=== PATIENT | male | born 1955 | race Caucasian/White ===

== ENCOUNTER → 2019-02-19 | Outpatient (CLI) | payer BC, OTHER | LOC: EMCIMAGING 13:39 | PROVIDERS: ATTEND Family Medicine | DX: M95.4 Acquired deformity of chest and rib (principal) | CPT/HCPCS: 71046-PN ==

== ENCOUNTER → 2019-02-22 | Outpatient (CLI) | payer OTHER | LOC: EMCIMAGING 15:13 | PROVIDERS: ATTEND Family Medicine | DX: R05 Cough (principal); K76.0 Fatty (change of) liver, not elsewhere classified | CPT/HCPCS: 71250-PN ==